=== PATIENT | male | born 1965 | race Caucasian/White ===

== ENCOUNTER 2024-01-05 11:44 | Emergency (ER) | payer SELFPAY ==
[2024-01-05 11:47] VITALS: BP 174/105
--- NOTE | 2024-01-05 12:17 | ED.GENMED ---
History of Present Illness
General
Chief Complaint: Alcohol Problem
Source: patient and family
Exam Limitations: none
Time Seen by Provider: 01/05/24 12:07
History of Present Illness
History of Present Illness:
58-year-old male long history of alcohol use. Presents for help for alcohol and depression. He has been an alcoholic for years. He lost his job a month ago. He feels he is depressed because of losing his job. Has had some suicidal ideation but
no plan or attempts. Last drank last evening. There was a family intervention this morning and he is agreeable to get further help.
Past History
Past History
ED Past Medical History: Other (Chronic alcohol use)
Review of Systems
Review of Systems
All Other Systems: Not applicable
Respiratory: Reports no symptoms
Cardiac: Reports no symptoms
ABD/GI: Reports no symptoms
Phy Exam
Physical Exam
Physical Exam:
GENERAL: Alert and oriented in no apparent distress
EYE: Orbits normal.
NECK: Supple
CARDIAC: Regular rate and rhythm without any obvious murmurs.
LUNGS: Clear breath sounds,normal
ABDOMEN: Soft, without focal tenderness or distention
NEUROLOGICAL: Alert and oriented , grossly non-focal. Gait normal. No tremors.
SKIN: Warm and dry, no rash or lesion, no discoloration, skin intact.
MUSCULOSKELETAL: No edema,no deformity.Good color
PSYCH: Normal and appropriate interaction.
Scores
Withdrawal Assessment of Alcohol
Withdrawal Assessment Completed?: Yes
Nausea and Vomiting: No nausea and no vomiting
Tactile Disturbances: None
Tremor: No tremor
Auditory Disturbances: Not present
Paroxysmal Sweats: No sweat visible
Visual Disturbances: Not present
Anxiety: Mild anxiety
Headache, Fullness in Head: Not present
Agitation: Normal activity
Orientation and clouding of sensorium: Oriented and can do serial additions
Total CIWA Score: 1
Alcohol Withdrawal Medication Recommendation: Equal to MSAS Score 0-4. Monitor & re-assess q2hrs, NO MEDICATION NEEDED
Course
Orders/Labs/Results
Orders:
Orders
01/05/24 12:41
Alcohol Urgent
Complete Blood Count/With Diff Urgent
Comprehensive Metabolic Panel Urgent
Urine Drug Abuse Screen Urgent
Date Specimen was Collected: 01/05/24
Time Specimen was Collected: 12:37
Abnormal Lab Results
01/05/24
12:41
RBC 4.65 L 10^6/uL
(4.70-6.10)
MCH 32.7 H pg
(27.0-31.0)
Absolute Monos (auto) 0.7 H 10^3/uL
(0.1-0.6)
Monocytes % 9.8 H %
(1.7-9.3)
BUN 6 L mg/dl
(9-20)
ALT 59 H U/L
(0-50)
U Marijuana (THC) Screen Positive H
(Negative)
01/05/24 12:41
01/05/24 12:41
Vital Signs
Initial and Last Documented VS:
Initial Vital Signs
Temp Pulse Resp BP Pulse Ox
98.1 F 79 18 174/105 99
01/05/24 11:47 01/05/24 11:47 01/05/24 11:47 01/05/24 11:47 01/05/24 11:47
Last Documented Vital Signs
Temp Pulse Resp BP Pulse Ox
98.1 F 79 18 168/102 99
01/05/24 11:47 01/05/24 11:47 01/05/24 11:47 01/05/24 14:26 01/05/24 11:47
MDM/Problems Addressed
Differential Diagnosis Includes:
Patient with chronic alcohol use and depression. He has had some suicidal ideation but no plan or attempt. Discussed with crisis who felt [facility] was more appropriate first. Will check labs and urine. No clinical findings to support acute
withdrawal at this time
*Pulse Oximetry
Patient hypoxic: no
*Critical Care Note
Total Time (30-74mins, 75-104mins- exclusive of procedures): Not Applicable
Update Note
Update Note:
Patient's testing is stable. He is cleared for help at [facility].
ED Attending Note
-
Portions of this chart may have been created with voice recognition software.� Occasional wrong word or��sound alike� substitutions may have occurred due to the inherent limitations of voice recognition software.
Discharge Plan
Departure
Patient Disposition: Other
Date of Disposition: 01/05/24
Time of Disposition: 14:18
Discharge Problem:
Evaluation for alcohol abuse disorder, Depression
Instructions: Depression in adults, Alcohol Use Disorder (DC), BLOOD PRESSURE
Referrals:
Gordy Gonzalez, [Family Provider] - Follow up in 2-3 days
Interventions
Interventions:
*Risk Screen - Suicide Last Done: 01/05/24 11:51
*General Assessment Last Done: 01/05/24 11:51
*Neglect/Abuse Screening Last Done: 01/05/24 11:51
ED- Fall Risk Assessment Last Done: 01/05/24 12:39
*ED COVID-19 Vaccine History Last Done: 01/05/24 11:56
*Nursing Disposition Last Done: 01/05/24 14:33
ED- Neurological Assessment Last Done: 01/05/24 12:39
ED-Psychological Assessment Last Done: 01/05/24 12:39
Discharge Date and Time
Discharge Date/Time: 01/05/24 14:36
Print Language: MACEDONIAN
[2024-01-05 12:56] LABS: % Basophils 0.9 % (0-2); % Eosinophils 3.1 % (0-6); % Immature Granulocytes 0.3 % (0-0.5); % Lymphocytes 22.6 % (20.5-51.1); % Monocytes 9.8 % (1.7-9.3); % Neutrophils 63.3 % (42.2-75.2); Absolute Basophils 0.1 10^3/uL (0-0.2); Absolute Eosinophils 0.2 10^3/uL (0-0.7); Absolute Lymphocytes 1.7 10^3/uL (1.2-3.4); Absolute Monocytes 0.7 10^3/uL (0.1-0.6); Absolute Neutrophils 4.7 10^3/uL (1.4-6.5); Hematocrit 42.7 % (39.0-52.0); Hemoglobin 15.2 g/dL (13.0-18.0); Mean Corp Hgb Conc. 35.6 g/dL (33.0-37.0); Mean Corpuscular Hgb 32.7 pg (27.0-31.0); Mean Corpuscular Volume 91.8 fL (80.0-94.0); Mean Platelet Volume 9.7 fL (7.4-10.4); Nucleated Red Blood Cells % 0 % (-); Platelet Count 242 10^3/uL (130-400); Red Blood Cell Count 4.65 10^6/uL (4.70-6.10); Red Cell Dist. Width 11.8 % (11.5-14.5); White Blood Cell Count 7.4 10^3/uL (4.8-10.8)
[2024-01-05 13:13] LABS: ALT (SGPT) 59 U/L (0-50); AST (SGOT) 45 U/L (17-59); Albumin 4.6 g/dl (3.5-5.0); Alcohol 124 mg/dl; Alkaline Phosphatase 110 U/L (38-126); Blood Urea Nitrogen 6 mg/dl (9-20); Calcium 9.4 mg/dl (8.4-10.2); Carbon Dioxide 27 mmol/L (22-30); Chloride 102 mmol/L (98-107); Glucose 95 mg/dl (70-99); Potassium 4.2 mmol/L (3.5-5.1); Sodium 141 mmol/L (135-145); Total Bilirubin 0.3 mg/dl (0.2-1.3); eGFR > 60.00
[2024-01-05 13:56] LABS: Amphetamines Negative (Negative); Barbiturates Negative (Negative); Benzodiazepines Negative (Negative); Buprenorphine Negative (Negative); Cocaine Negative (Negative); Marijuana Positive (Negative); Methadone Negative (Negative); Methamphetamines Negative (Negative); Opiates Negative (Negative); Phencyclidine Negative (Negative); Tricyclic Antidepressants Negative (Negative)
[2024-01-05 14:26] VITALS: BP 168/102
== END 2024-01-05 14:36 | disposition other institution (70) ==
LOC: EMR 11:44
PROVIDERS: EMERGENCY PHYSICIAN Emergency Medicine; FAMILY PHYSICIAN Family Medicine
DX: F32.A Depression, unspecified (principal); F10.90 Alcohol use, unspecified, uncomplicated; Z56.0 Unemployment, unspecified
CPT/HCPCS: 99283; 80053; 80306; 82077; 85025